=== PATIENT | male | born 1975 | race Caucasian/White ===

== ENCOUNTER 2021-07-30 16:56 | Emergency (ER) | payer BC, SELFPAY ==
[2021-07-30] VITALS (10 sets, daily range): BP systolic 118–132; BP diastolic 73–79; PULSE 77–84; RESP 13–22; TEMP 36.8; O2SAT 98–100
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
[2021-07-30] MEDS: Ketorolac 15 MG/ML VIAL IVP (17:25)
[2021-07-30 17:37] LABS: Abs Immature Grans 0.03 10^3/uL (0.0-0.06); Absolute Basophil Count 0.04 10^3/uL (0.0-0.2); Absolute Eosinophil Count 0.07 10^3/uL (0.0-0.7); Absolute Lymphocyte Count 1.57 10^3/uL (1.2-3.4); Absolute Monocyte Count 0.44 10^3/uL (0.1-0.8); Basophils % 0.5; Eosinophils % 0.8; HCT 44.4 % (40.0-50.0); HGB 15.1 g/dL (13.5-17.5); Immature Grans % 0.3; Lymphocytes % 18.2; MCH 31.7 pg (27.0-33.0); MCV 93.3 fL (80-95); MPV 11.1 fL (8.0-11.0); Monocytes % 5.1; Neutrophils % 75.1; Nucleated RBC 0 %; Platelet Count 195 10^3/uL (130-400); RBC 4.76 10^6/uL (4.36-5.78); RDW 12.7 % (11.8-14.1); RDW-SD 44.1 fL; WBC 8.65 10^3/uL (4.4-10.8)
[2021-07-30 17:54] LABS: ALT 57 U/L (16-63); AST 39 U/L (15-37); Albumin 4.4 g/dL (3.4-5.0); Alkaline Phosphatase 68 U/L (46-116); Anion Gap 5.4 mmol/L (3-11); BUN 32 mg/dL (7-18); Bilirubin, Total 0.8 mg/dL (0.2-1.0); CO2 32.6 mmol/L (21.0-32.0); CREATININE 1.5 mg/dL (0.70-1.30); Calcium 9.6 mg/dL (8.5-10.1); Chloride 106 mmol/L (98-107); Estimated GFR 50.16 (mL/min/1.73m2); Glucose 120 mg/dL (74-106); Potassium 4.5 mmol/L (3.5-5.1); Sodium 144 mmol/L (136-145); Total Protein 7.7 g/dL (6.4-8.2)
[2021-07-30] MEDS: Omnipaque 350 MG/ML 100 ML BTL IJ (17:59)
[2021-07-30] MEDS: Normal Saline Flush 10 ML SYR IVP (18:03)
--- NOTE | 2021-07-30 18:12 | DI.VRAD_ITS ---
PROCEDURE INFORMATION: Exam: XR Right Shoulder Exam date and time: 07/30/2021 5:17 PM Age: 45 years old Clinical indication: Injury or trauma; Fall; Blunt trauma (contusions or hematomas); Shoulder; Left TECHNIQUE: Imaging protocol: XR Right shoulder. Views: 2 or more views. COMPARISON: No relevant prior studies available. FINDINGS: Bones/joints: Fracture of the scapula. This is a fracture in the region of the base of the coracoid process. There appears to be distraction approximately 9 mm. Glenohumeral joint appears aligned. No dislocation. AC joint subcentimeter in width. No evidence of AC separation. No evidence of clavicular elevation. No clavicular fracture evident. There is a minor fracture of the posterior right upper 3rd rib. Nondisplaced. Lungs: Limited view of the right lung is clear. Pleural space: No evidence of apical pneumothorax. Soft tissues: Normal. IMPRESSION: 1. Mildly displaced scapular fracture involving the coracoid process. 2. Minor fracture of the posterior right 3rd rib is evident. 3. CT of the shoulder and chest may be warranted for further evaluation to evaluate for more subtle injuries. Recommend clinical correlation. Dictated and Authenticated by: De Bonner MD. Ordering:MARIELA Morgan MD
--- NOTE | 2021-07-30 18:14 | DI.VRAD_ITS ---
PROCEDURE INFORMATION: Exam: XR Left Ankle Exam date and time: 07/30/2021 5:17 PM Age: 45 years old Clinical indication: Injury or trauma; Fall; Sprain or strain; Ankle; Left TECHNIQUE: Imaging protocol: XR Left ankle. Views: 3 or more views. COMPARISON: No relevant prior studies available. FINDINGS: Bones/joints: No acute fracture or dislocation. There is a smoothly contoured corticated calcification adjacent to the medial malleolus tip consistent with an old injury. This may represent old ligamentous injury with dystrophic calcification. Differential diagnosis of nonunion of a previous medial malleolar tip fracture. Soft tissues: Mild soft tissue swelling of the ankle region. IMPRESSION: 1. No acute fracture or dislocation. 2. Mild soft tissue swelling. Dictated and Authenticated by: De Bonner MD. Ordering:MARIELA Morgan MD
--- NOTE | 2021-07-30 18:18 | DI.VRAD_ITS ---
PROCEDURE INFORMATION: Exam: CT Head Without Contrast Exam date and time: 07/30/2021 5:16 PM Age: 45 years old Clinical indication: Injury or trauma; Fall; Blunt trauma (contusions or hematomas) TECHNIQUE: Imaging protocol: Computed tomography of the head without contrast. COMPARISON: No relevant prior studies available. FINDINGS: Brain: There is no intracranial hemorrhage. There is no midline shift or space occupying mass. There is normal kay-white matter differentiation without evidence of acute large vascular territorial infarct. There is no cerebral edema. There are no extra-axial fluid collections. The posterior fossa structures are unremarkable. Cerebral ventricles: The ventricles are normal in position. No hydrocephalus. Paranasal sinuses: The visualized paranasal sinuses are well-aerated. There are no air fluid levels to suggest acute sinusitis. Mastoid air cells: Status post RIGHT mastoidectomy. The residual cavity is aerated. LEFT tympanomastoid air cells normally aerated. Orbital cavity: The orbits are unremarkable as visualized. Bones/joints: No acute fracture. No focal osseous lesions. Soft tissues: Asymmetric temporalis muscles more pronounced on the RIGHT. This may be due to normal anatomic variation. Bruxism may produce this finding. This less likely could represent soft tissue swelling. IMPRESSION: 1. No acute intracranial findings. 2. Status post RIGHT mastoidectomy. 3. Asymmetric temporalis muscles more pronounced on the RIGHT which may be due to bruxism, less likely soft tissue swelling. Please correlate clinically. PROCEDURE INFORMATION: Exam: CT Cervical Spine Without Contrast Exam date and time: 07/30/2021 5:16 PM Age: 45 years old Clinical indication: Injury or trauma; Fall; Blunt trauma (contusions or hematomas) TECHNIQUE: Imaging protocol: Computed tomography images of the cervical spine without contrast. COMPARISON: No relevant prior studies available. FINDINGS: Bones/joints: The cervical lordosis is preserved. Normal vertebral alignment. Space narrowing and endplate osteophyte formation at C5-C6. Bilateral uncovertebral spurring. Mild foraminal stenosis. No central canal stenosis. No acute fracture. No focal osseous lesions. Discs/Spinal canal/Neural foramina: See Bones/joints finding. Lungs: Lung apices are unremarkable. Soft tissues: Soft tissues are unremarkable. IMPRESSION: No acute findings. Dictated and Authenticated by: Michaela Coburn MD. Ordering:MARIELA Morgan MD
--- NOTE | 2021-07-30 18:26 | DI.VRAD_ITS ---
PROCEDURE INFORMATION: Exam: CT Chest With Contrast; Diagnostic Exam date and time: 07/30/2021 5:56 PM Age: 45 years old Clinical indication: Injury or trauma; Fall; Upper; Blunt trauma (contusions or hematomas) TECHNIQUE: Imaging protocol: Diagnostic computed tomography of the chest with contrast. Contrast material: OMNIPAQUE 350; Contrast volume: 100 ml; Contrast route: INTRAVENOUS (IV); COMPARISON: CT HEAD CERVICAL SPINE WO 07/30/2021 5:54 PM FINDINGS: Lungs: Right middle lobe lateral subsegmental airspace disease most consistent with atelectasis. Nonspecific anterior right middle lobe 5 x 4 mm nodule. Smoothly contoured. Noncalcified. Series 5, images 39 and 40. Additional small subpleural nodule in the superior right upper lobe measuring 2 mm. This is subpleural along the superior oblique fissure. Likely a small noncalcified granuloma. See series 9, image 305. Pleural spaces: No pleural effusion. No pneumothorax. Heart: Normal heart size. No pericardial effusion. Aorta: No thoracic aorta injury evident. Ascending aorta maximal diameter 3.6 cm. Descending aorta maximal diameter 2.4 cm. Lymph nodes: Unremarkable. No enlarged lymph nodes. Bones/joints: Minor fractures of the lateral right 3rd, 4th and 5th ribs. A minor fracture is noted of the posterior right 3rd rib as well. This is nondisplaced. No significant displacement. Right scapular fracture involving the base of the coracoid process. No dislocation of glenohumeral joint. AC joint intact. No clavicular fracture or dislocation evident. There is irregularity of the left aspect of the sternum near the 1st rib sternal junction. There appears to be a fracture plane with disruption of the anterior and posterior cortex. See series 8, image 256. Sagittal series 7, images 70 through 73. No dislocation of the sternoclavicular joint. This is a fracture of the left superior aspect of the sternal manubrium. 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 Series 6, image 16. There is a linear defect in this region which does not appear to represent an acute fracture. This appears corticated. Series 8, image 268. Soft tissues: Unremarkable. IMPRESSION: 1. No pneumothorax, hemothorax or pleural fluid accumulation 2. No evidence of cardiac or great vessel injury. 3. Mild atelectasis of an peripheral lateral subsegment right middle lobe. This is noncalcified and smoothly contoured. 4. Nonspecific nodule in the right middle lobe measuring approximately 5 x 4 mm. A 2 mm nodule is seen in the superior anterior right lower lobe. These are likely granulomas. 5. Fractures of the right 3rd, 4th, and 5th ribs. 6. Right scapular fracture of the coracoid process base with minor distraction. 7. Suggestion of a left sternal manubrial fracture at the junction of the left 1st rib to the sternomanubrial region. This is without significant displacement. 8. 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 PROCEDURE INFORMATION: Exam: CT Abdomen And Pelvis With Contrast Exam date and time: 07/30/2021 5:56 PM Age: 45 years old Clinical indication: Injury or trauma; Fall; Upper; Blunt trauma (contusions or hematomas) TECHNIQUE: Imaging protocol: Computed tomography of the abdomen and pelvis with contrast. COMPARISON: CT HEAD CERVICAL SPINE WO 07/30/2021 5:54 PM FINDINGS: Liver: Normal. No mass. Gallbladder and bile ducts: Normal. No calcified stones. No ductal dilation. Pancreas: Normal. No ductal dilation. Spleen: Normal. No splenomegaly. Adrenal glands: Normal. No mass. Kidneys and ureters: Normal. No hydronephrosis. Stomach and bowel: Unremarkable. No obstruction. No mucosal thickening. Appendix: No evidence of appendicitis. Intraperitoneal space: Unremarkable. No free air. No significant fluid collection. Vasculature: Unremarkable. No abdominal aortic aneurysm. Lymph nodes: Unremarkable. No enlarged lymph nodes. Urinary bladder: Unremarkable as visualized. Reproductive: Unremarkable as visualized. Bones/joints: Unremarkable. No acute fracture. Soft tissues: Unremarkable. IMPRESSION: 1. No acute findings. 2. No free fluid in the abdomen or pelvis. 3. No visceral injury. 4. No acute skeletal disruption. Dictated and Authenticated by: De Bonner MD. Ordering:MARIELA Morgan MD
--- NOTE | 2021-07-30 19:07 | NUR.NOTE ---
Nursing Note: Sling applied to right arm per MD verbal order. CSM intact per and post sling application.
== END 2021-07-30 19:45 | disposition home or self-care (01) ==
PROVIDERS: Emergency Provider Emergency Medicine
DX: S42.131A Displaced fracture of coracoid process, right shoulder, initial encounter for closed fracture (principal); S09.8XXA Other specified injuries of head, initial encounter; S22.41XA Multiple fractures of ribs, right side, initial encounter for closed fracture; M25.572 Pain in left ankle and joints of left foot; R10.811 Right upper quadrant abdominal tenderness; V17.0XXA Pedal cycle driver injured in collision with fixed or stationary object in nontraffic accident, initial encounter; Y93.55 Activity, bike riding
CPT/HCPCS: 36415; 74177; 80053; 86850; 86900; 86901; 96374; 99285; 70450; 71260; 72125; 73030; 73610; 83735; 85025; J1885; J3490